=== PATIENT | male | born 1935 | race Caucasian/White ===

== ENCOUNTER 2018-02-14 11:50 | Emergency (ER) | payer MEDICARE, OTHER ==
[~2018-02-14] VITALS: Ht 177.8 cm; Wt 70.7 kg
[~2018-02-14 11:50] MED LIST: ASPI325T17 PO; LEVO150T PO
--- NOTE | 2018-02-14 12:12 | NUR ---
PT REPORTS HAVING A COUGH THIS AM AND TOOK HIS WIFES COUGH MEDICATION THEN STARTED HAVING CHEST PAIN AND HEART BURN. PT DRANK A 7 UP AND BELCHED AND THE PAIN WENT AWAY. HE WENT TO AND HAD AN EKG AND HE WAS SENT TO THE ED. PT IS ALERT, ORIENTED, WITH NAD. PT IS CONNECTED TO THE MONITOR. CALL LIGHT WITHIN REACH. DENIES CP NOW. NO OTHER SYMPTOMS.
--- NOTE | 2018-02-14 12:19 | NUR ---
PT STATED THAT HE TOOK 2 ASA THIS MORNING.
--- NOTE | 2018-02-14 12:30 | NUR ---
LAB AT BEDSIDE.
--- NOTE | 2018-02-14 12:33 | NUR ---
X RAY AT BEDSIDE.
[2018-02-14 12:50] LABS: BASOPHILS # (AUTO) 0.02 x10^3/uL (0-0.1); BASOPHILS % (AUTO) 0 % (0-1); EOSINOPHILS # (AUTO) 0.09 x10^3/uL (0-0.4); EOSINOPHILS % (AUTO) 1 % (1-7); LYMPHOCYTES # (AUTO) 1.13 x10^3/uL (1-3.4); LYMPHOCYTES % (AUTO) 14 % (22-44); MD NO; MEAN CORPUSCULAR HEMOGLOBIN 30.9 pg (27.5-34.5); MEAN CORPUSCULAR HGB CONC 33.5 g/dL (33.2-36.2); MEAN CORPUSCULAR VOLUME 92.2 fL (81-97); MEAN PLATELET VOLUME 7.9 fL (7.4-10.4); MONOCYTES # (AUTO) 0.66 x10^3/uL (0.2-0.8); MONOCYTES % (AUTO) 8 % (2-9); NEUTROPHILS # (AUTO) 6.52 x10^3/uL (1.8-6.8); NEUTROPHILS % (AUTO) 77 % (42-75); PLATELET COUNT 245 x10^3/uL (130-400); RED BLOOD COUNT 4.83 x10^6/uL (4.38-5.82); RED CELL DISTRIBUTION WIDTH 13.8 % (9.4-14.8)
[2018-02-14 12:51] LABS: CHLORIDE 106 mmol/L (98-107)
[2018-02-14 12:58] LABS: ALANINE AMINOTRANSFERASE 97 U/L (12-78); ALBUMIN 3.6 g/dL (3.4-5.0); ANION GAP 5 mmol/L (5-15); CALCIUM 8.5 mg/dL (8.5-10.1); CREATININE 0.95 mg/dL (0.7-1.3)
[2018-02-14 13:16] LABS: ALKALINE PHOSPHATASE 141 U/L (45-117); BILIRUBIN,TOTAL 0.5 mg/dL (0.2-1.0); TOTAL PROTEIN 7.3 g/dL (6.4-8.2); TROPONIN I < 0.015 ng/mL (0.000-0.045)
--- NOTE | 2018-02-14 13:16 | NUR ---
PT IS RESTING IN BED, WATCHING TV, RESPIRATIONS EQUAL AND NON LABORED. NAD. PT IS CONNECTED TO THE MONITOR. CALL LIGHT WITHIN REACH.
--- NOTE | 2018-02-14 14:10 | NUR ---
PT IS RESTING IN BED, WATCHING TV, RESPIRATIONS EQUAL AND NON LABORED. NAD. PT IS CONNECTED TO THE MONITOR. CALL LIGHT WITHIN REACH.
[2018-02-14 14:54] VITALS: BP 126/78
--- NOTE | 2018-02-14 14:55 | NUR ---
T IS RESTING IN BED, WATCHING TV, RESPIRATIONS EQUAL AND NON LABORED. NAD. PT IS CONNECTED TO THE MONITOR. CALL LIGHT WITHIN REACH.
--- NOTE | 2018-02-14 15:40 | NUR ---
Patient given discharge instructions and they have confirmed that they understand the instructions. Patient ambulatory with steady gait.
== END 2018-02-14 15:41 | disposition home or self-care (01) ==
LOC: ED 12:27
DX: R07.2 Precordial pain (principal); R94.5 Abnormal results of liver function studies; E03.9 Hypothyroidism, unspecified; I11.9 Hypertensive heart disease without heart failure
CPT/HCPCS: 36415; 71045; 76700; 80053; 83690; 84484; 85025; 93005; 99284

== ENCOUNTER → 2019-04-30 | Outpatient (CLI) | payer MEDICARE | END | disposition home or self-care (01) | LOC: CFH 15:46 | PROVIDERS: ATTEND Internal Medicine Cardiovascular Disease | DX: I08.8 Other rheumatic multiple valve diseases (principal); Z95.4 Presence of other heart-valve replacement | CPT/HCPCS: 93306 ==

== ENCOUNTER → 2020-01-18 | Outpatient (CLI) | payer MEDICARE | END | disposition home or self-care (01) | LOC: CVU 09:45 | PROVIDERS: ATTEND Internal Medicine Cardiovascular Disease | DX: I65.23 Occlusion and stenosis of bilateral carotid arteries (principal); I77.9 Disorder of arteries and arterioles, unspecified | CPT/HCPCS: 93880 ==

== ENCOUNTER 2020-02-25 09:59 | Emergency (ER) | payer MEDICARE ==
[~2020-02-25] VITALS: Ht 177.8 cm; Wt 68.3 kg
--- NOTE | 2020-02-25 10:17 | NUR ---
PT BROUGHT BACK FROM TRIAGE WITH CHIEF COMPLAINT OF BLOOD IN STOOL STARTING SATURDAY NIGHT, WORSENING YESTERDAY. PT DESCRIBES BRIGHT RED AND DARK STOOL. KRISTOPHER HORNER AT BEDSIDE FOR EVAL.
--- NOTE | 2020-02-25 10:21 | NUR ---
PT REPORTS CLEAN/NEGATIVE COLONOSCOPY WITHIN 6 MONTHS. ALSO STATES HE TOOK SOME PEPTOBISMAL LAST NIGHT.
[2020-02-25] MEDS ORDERED: SODIUM CHLORIDE 0.9% 1,000ML IVBOLUS ONE (11:00)
[2020-02-25 11:18] LABS: BASOPHILS % (AUTO) 1 % (0-1); EOSINOPHILS % (AUTO) 2 % (1-7); LYMPHOCYTES % (AUTO) 21 % (22-44); MEAN CORPUSCULAR HEMOGLOBIN 30.6 pg (27.5-34.5); MEAN CORPUSCULAR HGB CONC 33.6 g/dL (33.2-36.2); MEAN PLATELET VOLUME 8.1 fL (7.4-10.4); MONOCYTES % (AUTO) 9 % (2-9); NEUTROPHILS % (AUTO) 68 % (42-75); PLATELET COUNT 199 x10^3/uL (130-400); RED BLOOD COUNT 3.93 x10^6/uL (4.38-5.82); RED CELL DISTRIBUTION WIDTH 13.5 % (9.4-14.8)
[2020-02-25 11:24] LABS: MD NO
[2020-02-25 11:27] LABS: ALBUMIN 3.4 g/dL (3.4-5.0); ANION GAP 5 mmol/L (5-15); CALCIUM 8.8 mg/dL (8.5-10.1); CHLORIDE 109 mmol/L (98-107)
[2020-02-25] MEDS ORDERED: SODIUM CHLORIDE FLUSH 10ML SYR IVF ONE (11:30)
[2020-02-25 11:31] LABS: ALANINE AMINOTRANSFERASE 17 U/L (12-78); ALKALINE PHOSPHATASE 83 U/L (45-117); BILIRUBIN,TOTAL 0.6 mg/dL (0.2-1.0); CREATININE 1.04 mg/dL (0.7-1.3); TOTAL PROTEIN 6.3 g/dL (6.4-8.2)
--- NOTE | 2020-02-25 11:50 | NUR ---
BEDSIDE REPORT RECEIVED FROM ERIK YUN FOR TRANSFER OF PATIENT CARE.
--- NOTE | 2020-02-25 11:59 | NUR ---
PATIENT TO CT SCAN.
[2020-02-25] MEDS ORDERED: OMNIPAQUE 350 MG/ML, 100ML BOTTLE ONE (12:21)
--- NOTE | 2020-02-25 12:21 | NUR ---
PATIENT SITTING IN GURNEY WATCHING TV, NADN, VSS, PATIENT DENIES PAIN, SIDE RAILS UP X2, CALL LIGHT WITHIN REACH, WAITING FOR CT RESULTS.
[2020-02-25 12:34] LABS: INTERNATIONAL NORMALIZED RATIO 1.05 (0.93-1.1); PROTHROMBIN TIME 11.1 Seconds (9.6-11.5)
--- NOTE | 2020-02-25 12:52 | NUR ---
ERMD AT BEDSIDE TO DISCUSS POC.
[2020-02-25 13:26] VITALS: BP 127/61
--- NOTE | 2020-02-25 13:37 | NUR ---
Patient given discharge instructions and GI referral information and they have confirmed that they understand the instructions. Patient stable and ambulatory with steady gait from ED to private vehicle.
== END 2020-02-25 13:38 | disposition home or self-care (01) ==
LOC: ED 10:33
DX: K92.1 Melena (principal); E03.9 Hypothyroidism, unspecified; Z90.49 Acquired absence of other specified parts of digestive tract
CPT/HCPCS: 36415; 74174; 80053; 85025; 85610; 86850; 86900; 96360; 99285; J7030; Q9967

== ENCOUNTER 2020-03-04 09:59 | Emergency (ER) | payer MEDICARE ==
[~2020-03-04] VITALS: Ht 175.3 cm; Wt 67.9 kg
--- NOTE | 2020-03-04 10:31 | NUR ---
PT AMBULATORY TO ROOM 7 W/ C/O HAVING MEMORY ISSUES STARTED THIS AM. PT IS ABLE TO RECOLLECT DIVISION [employer]PER[employer] MEMORY HAVING TROUBLE W/ SHORT TERM MEMORY. NEURO INTACT. PT RESTING ON GURNEY. NADN. MONITORS APPLIED. ERP DR. TRIPP AT BEDSIDE.
[2020-03-04 10:57] LABS: MICROSCOPIC NOT IND
[2020-03-04 10:59] LABS: BASOPHILS % (AUTO) 1 % (0-1); EOSINOPHILS % (AUTO) 1 % (1-7); LYMPHOCYTES % (AUTO) 24 % (22-44); MEAN CORPUSCULAR HEMOGLOBIN 31.3 pg (27.5-34.5); MEAN CORPUSCULAR HGB CONC 34.1 g/dL (33.2-36.2); MEAN PLATELET VOLUME 7.9 fL (7.4-10.4); MONOCYTES % (AUTO) 12 % (2-9); NEUTROPHILS % (AUTO) 62 % (42-75); PLATELET COUNT 272 x10^3/uL (130-400); RED CELL DISTRIBUTION WIDTH 14.5 % (9.4-14.8)
[2020-03-04 11:07] LABS: MD NO
[2020-03-04 11:10] LABS: ALBUMIN 3.5 g/dL (3.4-5.0); ANION GAP 7 mmol/L (5-15); CALCIUM 8.7 mg/dL (8.5-10.1); CHLORIDE 110 mmol/L (98-107); CREATININE 1.04 mg/dL (0.7-1.3)
--- NOTE | 2020-03-04 11:42 | NUR ---
PT CHART REVIEWED AND PLACED FOR RECHECK.
--- NOTE | 2020-03-04 12:47 | NUR ---
PT CHART REVIEWED AND PLACED FOR RECHECK.
[2020-03-04 13:05] VITALS: BP 117/44
== END 2020-03-04 13:38 | disposition home or self-care (01) ==
LOC: ED 13:04
DX: R41.0 Disorientation, unspecified (principal); R51.9 Headache, unspecified; R41.3 Other amnesia; R63.4 Abnormal weight loss; E03.9 Hypothyroidism, unspecified; I51.9 Heart disease, unspecified; Z90.49 Acquired absence of other specified parts of digestive tract
CPT/HCPCS: 36415; 70450; 70551; 80048; 81003; 82040; 85025; 99285